=== PATIENT | male | born 1960 | race Caucasian/White ===

== ENCOUNTER 2022-10-29 16:59 | Emergency (ER) | payer MEDICARE, SELFPAY ==
[2022-10-29 17:03] VITALS: BP 165/90; PULSE 88; RESP 18; TEMP 36.6; O2SAT 99
--- NOTE | 2022-10-29 21:44 | PC.NURSE ---
2130 pt called to go back to room no answer 0 pt called 2nd time to go back to room no answer
== END 2022-10-29 21:30 | disposition left against medical advice (07) ==
PROVIDERS: PCP Internal Medicine
DX: G20 Parkinson's disease (principal)
CPT/HCPCS: 99199

== ENCOUNTER 2024-06-26 12:26 | Emergency (ER) | payer MEDICARE, SELFPAY ==
--- NOTE | ~2024-06-26 | XR_ITS ---
HISTORY: fall 2 weeks ago, left groin pain COMPARISON: None TECHNIQUE: 2 views of the left hip along with an AP view of the pelvis FINDINGS: No acute fracture or dislocation is identified. Superior lateral sclerosis of the femoral acetabular joint space is present consistent with osteoarth ritis. Degenerative disease within the visualized portion of the lower lumbar spine. Mineralization is age-appropriate IMPRESSION: Degenerative disease without acute fracture or dislocation Reviewed, dictated and finalized at location A. 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
[2024-06-26 12:27] VITALS: BP 185/106; PULSE 90; RESP 16; TEMP 37; O2SAT 97
--- OUTSIDE RECORDS SUMMARY | 2024-06-26 12:29 | XMS_ITS | Referral Summary ---
Author Organization [facility] Address [address] [place] [address] Care Team Providers Care Medical Insurance Verifier Name Role Phone Unknown, Notinfile Primary Care Provider Unavail able Rose Nuñez MD, Josh P. Unavailable [phone] Allergies No known active allergies Medications cyclobenzaprine (FLEXERIL) 5 mg tablet Take 1 tablet (5 mg total) by mouth 3 (three) times a day as needed for muscle spasms Active rotigotine 8 mg/24 hour [address] 1 patch on the skin daily Active carbidopa-levod opa (SINEMET) 25-250 mg per tablet Take 1.5 tablets by mouth 6 (six) times a day Active aspirin 81 mg enteric coated tabletIndicatio ns:cardiovascul ar disease Take 1 tablet (81 mg total) by mouth daily 30 tablet 12/23/2022 Active metoprolol XL (TOPROL-XL) 25 mg extended release tabletIndicatio ns:cardiovascul ar disease Take 1 tablet (25 mg total) by mouth daily 30 tablet 12/23/2022 Active ticagrelor (BRILINTA) 90 mg tabletIndicatio ns:cardiovascul ar disease Take 1 tablet (90 mg total) by mouth 2 (two) times a day 60 tablet 12/22/2022 Active Active Problems Problem Noted Date Diagnosed Date CAD (coronary artery disease) 12/21/2022 Social History Tobacco Use Types Packs/Day Years Used Date Smoking Tobacco: Never Tobacco Cessation:Counseling Given: Not Answered Alcohol Use Standard Drinks/Week Comments Not Currently 0 (1 standard drink = 0.6 oz pur e alcohol) Personal Safety Answer Date Recorded Getting School Help Needed Not on file 01/11 Sex and Gender Information Value Date Recorded Sex Assigned at Not on file 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 Gender Identity Not on file Sexual Orientation Not on file Last Filed Vital Signs Vital Sign Reading Time Taken Comments Blood Pressure 134/79 08/28/2023 10:21 AM CDT Pulse 81 08/28/2023 10:21 AM CDT Temperature 36.6 C (97.9 F) 12/22/2022 11:39 AM CDT Respiratory Rate 18 12/22/2022 11:39 AM CDT Oxygen Saturation 95% 12/22/2022 11:39 AM CDT Inhaled Oxygen Concentration - - Weight 83.6 kg (184 lb 3.2 oz) 08/28/2023 10:21 AM CDT Height 170.2 cm (5' 7 ) 08/28/2023 10:21 AM CDT Body Mass Index 28.85 08/28/2023 10:21 AM CDT Plan of Treatment Not on file Medical Devices Implanted Type Area Inspector Heating And Refrigeration Device Identifier Shelf Expiration Date Model / Serial / Lot TerChina Everbright International Leydi Angio-Seal Vip 6fr Closere Device [id number] - [id number] Implanted:Qty : 1 on 12/21/2022 by Claude Mccracken MD at [facility] Collagen Right: Common Femoral Artery Terumo Medical Leydi 06/12/2023 [id number] / / [id number] Medtronic Card Vasc Surgery 3.0 X 12mm Pabilto [place] Rx Coronary Stent [id number] - [id number] Implanted:Qty : 1 on 12/21/2022 by Claude Mccracken MD at [facility] Stent Left: Circumflex Coronary Artery Medtronic Card Vasc Surgery 08/31/2025 [id number] / / [id number] [facility] MEDICARE SOLUTIONS Advance Directives For more information, please contact: [phone] * Full Code (Latest Code Status on File) Date Activated Date Inactivated Comments 12/21/2022 3:44 PM 12/22/2022 6:01 PM * Full Code Date Activated Date Inactivated Comments 12/21/2022 2:12 PM 12/21/2022 3:44 PM Care Teams Medical Insurance Verifier Relationship Specialty Start Date End Date Unknown, Notinfile PCP - General 10/17/22 Josh Rose Jr., MD [address] [place] [address] Consulting Physician Cardiovascular Disease 12/22/22
--- OUTSIDE RECORDS SUMMARY | 2024-06-26 12:30 | XMS_ITS | Continuity of Care Document ---
Author Organization [facility] Address [address] [place] [address] [address] [place] [address] Phone Care Team Providers Care Delivery Person Name Role Phone Peng OD, Jaden Unavailable Unavailable Procedures Procedure Date Eye Exam Established Pt Advance Directives Directive Yes / No Effective Date File Name No Information Encounters Encounter Description Practice Location Reason(s) For Visit Diagnoses Date Provider Providers Copied on Encounter [facility], [address] [place] [address] [address], [place], [place], [id number], [place] tel:[phone] [facility] [place] No Information 6-200 8 Peng OD Jaden. [address] [facility] , [address], [place], [address], [place]. tel:[phone] Referring Provider: Asad Tinajero MD, [address] [place], [place], [facility]. tel:[phone] Family History Family Member Type Diagnosis Age At Onset No Information Payers Payer name Insurance type Covered libertarian ID Authoriza tion(s) No Information Social History Type Description Quantity Date Captured Comments Sex Male Smoking Status No Information Chief Complaint And Reason For Visit No Information Reason For Referral Reason For Referral No Information History Of Present Illness Encounter Date Complaint History Of Prese nt Illness No Information Functional Status Date Functional Assessmen t No Information Instructions Date Instruction Additional Infor mation No Information Assessments Type Assessment Date No Information Patient Care Teams Name Effective Dates (start - stop) Status Members No Information
--- OUTSIDE RECORDS SUMMARY | 2024-06-26 12:30 | XMS_ITS | Clinical Summary ---
Author Organization [facility] Address [address] [place] [address] Care Team Providers Care Hand Stone Polisher Name Role Phone Unknown, Notinfile Primary Care Provider Unavail able Rose Nuñez MD, Josh P. 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 Gender Identity Not on file Sexual Orientation Not on file Obstetrics History Last Filed Vital Signs Vital Sign Reading [...] 08/28/2023 10:21 AM CDT Plan of Treatment Health Maintenance Due Date Last Done Comments Colon Cancer Screening-Colonoscopy 1958 Depression Screening 1958 Fall Risk Assessment 1958 Hepatitis C Screening 1958 Prostate Cancer Screening-PSA 1958 DTaP/Tdap/Td Vaccine (1 - Tdap) 1969 Hepatitis B Screening 1976 Zoster Vaccine (1 of 2) 2008 Pneumococcal vaccine 65+ (1 of 1 - PCV) 10/18/2023 Well Visit 65+ 10/18/2023 Influenza Vaccine (#1) 2024 Medical Devices Implanted Type Area Tube Balancer Device Identifier Shelf Expiration Date Model / Serial / Lot TerNovaled Leydi Angio-Seal Vip 6fr Closere Device [id number] - [id number] Implanted:Qty : 1 on 12/21/2022 by Claude Mccracken MD at [facility] Collagen Right: Common Femoral Artery Terumo Medical Leydi 06/12/2023 [id number] / / [id number] Medtronic Card Vasc Surgery 3.0 X 12mm Pablito [place] Rx Coronary Stent [id number] - [id number] Implanted:Qty : 1 on 12/21/2022 by Claude Mccracken MD at [facility] Stent Left: Circumflex Coronary Artery Medtronic Card Vasc Surgery 08/31/2025 [id number] / / [id number] Insurance [facility] [address] [facility] MEDIC[facility] Address: [address] [place] [address] MEDICARE SOLUTIONS Advance Directives For more information, please contact: [phone] * Full Code (Latest Code Status on File) Date Activated Date Inactivated Comments 12/21/2022 3:44 PM 12/22/2022 6:01 PM * Full Code Date Activated Date Inactivated Comments 12/21/2022 2:12 PM 12/21/2022 3:44 PM Care Teams Hand Stone Polisher Relationship Specialty Start Date End Date Unknown, Notinfile PCP - General 10/17/22 Josh Rose Jr., MD [address] [place] [address] Consulting Physician Cardiovascular Disease 12/22/22
--- NOTE | 2024-06-26 14:23 | ED.RECABL ---
HPI - Recheck/Abnormal Lab/Rx General Chief Complaint: Recheck/Abnormal Lab/Rx <Donna Alanis PA-C - Last Filed: 06/26/24 14:28> Stated Complaint: parkinson's issues <Donna Alanis PA-C - Last Filed: 06/26/24 14:28> Time Seen by Provider: 06/26/24 15:12 <Donna Alanis PA-C - Last Filed: 06/26/24 14:28> Focused HPI: 63-year-old male with history of Parkinson's disease presents to the emergency department with friend at bedside for home health. Patient states today he was having difficulty caring for himself, going to the bathroom, going from sitting to standing position. States he cannot care for himself and lives by himself. He was a part of the [email or web address] program and had a home health nurse, however she got a month and half ago and he has not had any help since. His only complaint is left hip pain from a fall that occurred 3 weeks ago from slipping on ice. He states he did not hit his head lose consciousness. He has not had any imaging of his head performed. No other complaints. His neurologist is Dr. Shahid. GENERAL: Well-appearing, well-nourished, and in no acute distress. HEAD: Normocephalic, atraumatic. CHEST: Clear to auscultation. ?No respiratory distress. HEART: Regular rate and rhythm.? NEURO: ?Alert and oriented x3. Patient screened in triage and initial orders placed.? ?Additional care and disposition to be based upon?diagnostic testing and treatment. <Donna Alanis PA-C - Last Filed: 06/26/24 14:28> Source: patient and family <Carlos Humphreys MD - Last Filed: 06/26/24 16:23> Mode of arrival: ambulatory <Carlos Humphreys MD - Last Filed: 06/26/24 16:23> Limitations: no limitations <Carlos Humphreys MD - Last Filed: 06/26/24 16:23> History of Present Illness HPI narrative: 63-year-old with a history of Parkinson's here with the complaints of having confusion, having difficulty in walking since this morning. According to the friend who is at bedside states that she has been quite confused earlier this morning he was unable to stand or walk with a walker however by the time he got to the ER he seems to be more coherent. Patient denies any headache or chest pain. He states that he has been dealing with this Parkinson's disease for last 20 years has been to be [facility] several years ago , was advised to get a deep brain stimulator , which he refused to get it , has been seeing Dr. Shahid here at this facility . <Carlos Humphreys MD - Last Filed: 06/26/24 16:23> Symptoms since prior visit: no new symptoms <Carlos Humphreys MD - Last Filed: 06/26/24 16:23> Associated symptoms: none <Carlos Humphreys MD - Last Filed: 06/26/24 16:23> Related Data Allergies/Adverse Reactions: Allergies Allergy/AdvReac Type Severity Reaction Status Date / Time No Known Allergies Allergy Verified 02/24/24 14:58 <Donna Alanis PA-C - Last Filed: 06/26/24 14:28> Review of Systems Review of Systems: All systems reviewed & are unremarkable except as noted in HPI and below <Carlos Humphreys MD - Last Filed: 06/26/24 16:23> Constitutional: Constitutional: Reports no additional constitutional complaints <Carlos Humphreys MD - Last Filed: 06/26/24 16:23> Eyes: Eyes: Reports no additional eye complaints <Carlos Humphreys MD - Last Filed: 06/26/24 16:23> ENT: Reports system reviewed and no additional complaints, except as documented <Carlos Humphreys MD - Last Filed: 06/26/24 16:23> Cardiovascular: Cardiovascular: Reports no additional cardiovascular complaints <Carlos Humphreys MD - Last Filed: 06/26/24 16:23> Respiratory: Respiratory: Reports no additional respiratory complaints <Carlos Humhpreys MD - Last Filed: 06/26/24 16:23> Gastrointestinal: Gastrointestinal: Reports no additional gastrointestinal complaints <Carlos Humphreys MD - Last Filed: 06/26/24 16:23> Musculoskeletal: Musculoskeletal: Reports no additional musculoskeletal complaints <Carlos Humphreys MD - Last Filed: 06/26/24 16:23> Neurologic: Reports system reviewed and no additional complaints, except as documented <Carlos Humphreys MD - Last Filed: 06/26/24 16:23> PMFSH Past Medical History Medical History: Medical History REM behavioral disorder <Donna Alanis PA-C - Last Filed: 06/26/24 14:28> Social History Social History: Social History Social History: never smoker Smoking packs per day: 0 Smoking cigarettes per day: 0.0 Years smoked: 0 Smoking pack-years: 0.00 Smoking status: Never smoker Second hand tobacco smoke exposure: No Alcohol intake: never Substance use: current Substance use type: marijuana Do You Feel Safe in your Home?: Yes Lack of Transportation: YES Lack of Food: Sometimes True Current Housing: I Have Housing Concerned About Future Housing: No Difficulty Paying Gas/Electric Bills: No Difficulty Paying for Meds: No Currently Unemployed: No Education: Trade/Vocational Certificate Difficulty w/ Childcare or Family Care: No <Donna Alanis PA-C - Last Filed: 06/26/24 14:28> Exam Narrative: GENERAL: Well-appearing, well-nourished, and in no acute distress. HEAD: Normocephalic, atraumatic. EYES: PERRLA and EOMI. NECK: Supple. CHEST: Clear to auscultation. No respiratory distress. HEART: Regular rate and rhythm. No murmur heard. Normal peripheral pulses. ABDOMEN: Soft, nontender, nondistended, normal active bowel sounds. EXTREMITIES: Normal range of motion. No edema. SKIN: Warm, dry, no rash. NEURO: No focal deficits. Alert and oriented x3. Has Parkinson Tremor PSYCH: Normal mood and affect. <Carlos Humphreys MD - Last Filed: 06/26/24 16:23> Course Course Emergency Course: Informed patient and stranding about the lab work and x-ray findings. Advised him to continue his home medicine, contact the social service for increasing in visiting nurse hours. Also advised him to follow with movement Disorder Clinic at [facility] <Carlos Humphreys MD - Last Filed: 06/26/24 16:23> Vital Signs Vital signs: Vital Signs Temperature 37.0 C 06/26/24 12:27 Pulse Rate 90 06/26/24 12:27 Respiratory Rate 16 06/26/24 12:27 Blood Pressure 185/106 H 06/26/24 12:27 Pulse Oximetry 97 06/26/24 12:27 Temperature 37.0 C 06/26/24 12:27 Pulse Rate 90 06/26/24 12:27 Respiratory Rate 16 06/26/24 12:27 Blood Pressure 185/106 H 06/26/24 12:27 Pulse Oximetry 97 06/26/24 12:27 <Donna Alanis PA-C - Last Filed: 06/26/24 14:28> Vital Signs Temperature 37.0 C 06/26/24 12:27 Pulse Rate 90 06/26/24 12:27 Respiratory Rate 16 06/26/24 12:27 Blood Pressure 185/106 H 06/26/24 12:27 Pulse Oximetry 97 06/26/24 12:27 Temperature 37.0 C 06/26/24 12:27 Pulse Rate 90 06/26/24 12:27 Respiratory Rate 16 06/26/24 12:27 Blood Pressure 185/106 H 06/26/24 12:27 Pulse Oximetry 97 06/26/24 12:27 <Carlos Humphreys MD - Last Filed: 06/26/24 16:23> MDM - Recheck/Abnormal Lab/Rx Lab Data Attestation: I reviewed the patient's lab results. <Carlos Humphreys MD - Last Filed: 06/26/24 16:23> Result diagrams: 06/26/24 15:02 06/26/24 15:02 <Donna Alanis PA-C - Last Filed: 06/26/24 14:28> Labs: Lab Results 06/26/24 Range/Units 15:02 WBC 9.6 (4.5-10.0) K/mm3 RBC 4.83 (4.6-6.20) M/mm3 Hgb 14.9 (14.0-18.0) g/dL Hct 45.1 (42.0-52.0) % MCV 93.4 (80-100) fl MCH 30.8 (26-34) pg MCHC 33.0 (32-36) g/dl RDW 13.2 (11.5-14.5) % Plt Count 228 (150-375) k/mm3 MPV 11.3 H (7.4-10.4) fl Immature Gran % (Auto) 0.6 H (0-0.5) % Neut % (Auto) 78.5 H (45.5-73.1) % Lymph % (Auto) 14.3 L (18.3-44.2) % [place] % (Auto) 5.3 (2.6-8.5) % Eos % (Auto) 0.8 (0-4.4) % Baso % (Auto) 0.5 (0.2-1.2) % Lymph # (Auto) 1.38 (0.9-3.2) K/mm3 [place] # (Auto) 0.5 (0.1-0.6) K/mm3 Eos # (Auto) 0.1 (0-0.3) K/mm3 Baso # (Auto) 0.1 (0.0-0.1) K/mm3 Abs Immat Gran (auto) 0.06 H (0.00-0.031) K/mm3 Absolute Neuts (auto) 7.6 H (1.3-6.7) K/mm3 Absolute Nucleated RBC 0.000 (0.0-0.012) K/mm3 Nucleated RBC % 0.0 (0.0-0.2) % Sodium 139 (137-145) mmol/L Potassium 4.3 (3.4-5.0) mmol/L Chloride 102 (98-107) mmol/L Carbon Dioxide 21 L (22-30) mmol/L Anion Gap 16 H (4-12) mmol/L BUN 21 H (9-20) mg/dL Creatinine 0.71 (0.7-1.3) mg/dL Estim Creat Clear Calc 93 ml/min Estimated GFR > 60 (59 - ) Glucose 104 (65-110) mg/dL Calcium 9.4 (8.4-10.2) mg/dL Total Bilirubin 0.7 (0.2-1.3) mg/dL AST 29 (17-59) U/L ALT 12 (6-50) U/L Alkaline Phosphatase 77 (38-126) U/L Total Protein 8.0 (6.3-8.2) g/dL Albumin 4.6 (3.5-5.1) g/dL Urine Color Yellow (Yellow) Urine Appearance Clear (Clear) Urine pH 5.0 (5.0-9.0) Ur Specific [place] 1.017 (1.001-1.035) Urine Protein Negative (Negative) mg/dL Urine Glucose (UA) Negative (Negative) mg/dL Urine Ketones Negative (Negative) mg/dL Ur Blood (Man) Negative (Negative) Urine Nitrate Negative (Negative) Urine Bilirubin Negative (Negative) Urine Urobilinogen 0.2 (<2.0) mg/dL Leukocyte Esterase Rfl Negative (Negative) IVANIA/UL <Donna Alanis PA-C - Last Filed: 06/26/24 14:28> Lab Results 06/26/24 Range/Units 15:02 WBC 9.6 (4.5-10.0) K/mm3 RBC 4.83 (4.6-6.20) M/mm3 Hgb 14.9 (14.0-18.0) g/dL Hct 45.1 (42.0-52.0) % MCV 93.4 (80-100) fl MCH 30.8 (26-34) pg MCHC 33.0 (32-36) g/dl RDW 13.2 (11.5-14.5) % Plt Count 228 (150-375) k/mm3 MPV 11.3 H (7.4-10.4) fl Immature Gran % (Auto) 0.6 H (0-0.5) % Neut % (Auto) 78.5 H (45.5-73.1) % Lymph % (Auto) 14.3 L (18.3-44.2) % [place] % (Auto) 5.3 (2.6-8.5) % Eos % (Auto) 0.8 (0-4.4) % Baso % (Auto) 0.5 (0.2-1.2) % Lymph # (Auto) 1.38 (0.9-3.2) K/mm3 [place] # (Auto) 0.5 (0.1-0.6) K/mm3 Eos # (Auto) 0.1 (0-0.3) K/mm3 Baso # (Auto) 0.1 (0.0-0.1) K/mm3 Abs Immat Gran (auto) 0.06 H (0.00-0.031) K/mm3 Absolute Neuts (auto) 7.6 H (1.3-6.7) K/mm3 Absolute Nucleated RBC 0.000 (0.0-0.012) K/mm3 Nucleated RBC % 0.0 (0.0-0.2) % Sodium 139 (137-145) mmol/L Potassium 4.3 (3.4-5.0) mmol/L Chloride 102 (98-107) mmol/L Carbon Dioxide 21 L (22-30) mmol/L Anion Gap 16 H (4-12) mmol/L BUN 21 H (9-20) mg/dL Creatinine 0.71 (0.7-1.3) mg/dL Estim Creat Clear Calc 93 ml/min Estimated GFR > 60 (59 - ) Glucose 104 (65-110) mg/dL Calcium 9.4 (8.4-10.2) mg/dL Total Bilirubin 0.7 (0.2-1.3) mg/dL AST 29 (17-59) U/L ALT 12 (6-50) U/L Alkaline Phosphatase 77 (38-126) U/L Total Protein 8.0 (6.3-8.2) g/dL Albumin 4.6 (3.5-5.1) g/dL Urine Color Yellow (Yellow) Urine Appearance Clear (Clear) Urine pH 5.0 (5.0-9.0) Ur Specific [place] 1.017 (1.001-1.035) Urine Protein Negative (Negative) mg/dL Urine Glucose (UA) Negative (Negative) mg/dL Urine Ketones Negative (Negative) mg/dL Ur Blood (Man) Negative (Negative) Urine Nitrate Negative (Negative) Urine Bilirubin Negative (Negative) Urine Urobilinogen 0.2 (<2.0) mg/dL Leukocyte Esterase Rfl Negative (Negative) IVANIA/UL <Carlos Humphreys MD - Last Filed: 06/26/24 16:23> Imaging Data Radiologist's impression: ITS Impressions Hip/Pelvis X-Ray 06/26/24 15:20 IMPRESSION: Degenerative disease without acute fracture or dislocation <Carlos Humphreys MD - Last Filed: 06/26/24 16:23> Discharge Plan Discharge Clinical Impression: Parkinson's Disease <Donna Alanis PA-C - Last Filed: 06/26/24 14:28> Patient Disposition: Home, Self-Care <Donna Alanis PA-C - Last Filed: 06/26/24 14:28> Condition: Stable <Donna Alanis PA-C - Last Filed: 06/26/24 14:28> Instructions: Antibiotic Form <Donna Alanis PA-C - Last Filed: 06/26/24 14:28> Additional Instructions: continue home medication . Can call Dr Federica Preston at [facility] for an appointment [phone] <Donna Alanis PA-C - Last Filed: 06/26/24 14:28> Patient Language: Luxembourger <Donna Alanis PA-C - Last Filed: 06/26/24 14:28> Prescriptions: No Action bnwdoygqx-uqghrzyw-snldlaavoo 50-200-200 mg tablet 1 tablet PO QID Qty: 240 6RF carbidopa-levodopa 25-250 mg tablet See Rx Instructions .ROUTE .COMPLEX Qty: 675 1RF Dose Instruction: TAKE 1 AND 1/2 TABLETS BY MOUTH 5 TIMES DAILY Rx Instructions: TAKE 1 AND 1/2 TABLETS BY MOUTH 5 TIMES DAILY amantadine HCl 50 mg/5 mL solution See Rx Instructions .ROUTE .COMPLEX Qty: 1800 2RF Dose Instruction: TAKE 10ML BY MOUTH ONCE EVERY 12 HOURS. NEED APPOINTMENT TO HAVE A REFILL Rx Instructions: TAKE 10ML BY MOUTH ONCE EVERY 12 HOURS rotigotine 8 mg/24 hour patch 24 hour 8 mg transdermal DAILY Qty: 30 5RF <Donna Alanis PA-C - Last Filed: 06/26/24 14:28> Follow-up/Referrals: Billy,Kody Sterling MD [Primary Care Provider] - <Donna Alanis PA-C - Last Filed: 06/26/24 14:28> Time of Disposition: 16:23 <Donna Alanis PA-C - Last Filed: 06/26/24 14:28> 16:23 <Carlos Humphreys MD - Last Filed: 06/26/24 16:23>
--- NOTE | 2024-06-26 14:52 | PCCCNOTE ---
Called [place] [facility] to try to assist the pt to find the name of the company who comes to his home to assist with [employer] needs. Stated the pt has to call himself to receive that information. Will share the number of [phone] for him to call.--rajesh.
[2024-06-26 15:16] LABS: Add Urine Microscopic? NO; Appearance Urine Clear (Clear); Bilirubin Urine Negative (Negative); Blood Urine Negative (Negative); Color Urine Yellow (Yellow); Glucose Urine UA Negative (Negative); Ketones Urine Negative (Negative); Leukocyte Esterase Ur Negative LEU/UL (Negative); Nitrate Urine Negative (Negative); Protein Urine Negative (Negative); Specific Grav Ur 1.017 (1.001-1.035); Urobilinogen Urine 0.2 mg/dL (<2.0)
[2024-06-26 15:33] LABS: Alanine Aminotransferase 12 U/L (6-50); Albumin Level 4.6 g/dL (3.5-5.1); Alkaline Phosphatase 77 U/L (38-126); Anion Gap 16 mmol/L (4-12); Aspartate Amino Transferase 29 U/L (17-59); Bilirubin,Total 0.7 mg/dL (0.2-1.3); Blood Urea Nitrogen 21 mg/dL (9-20); Calcium 9.4 mg/dL (8.4-10.2); Carbon Dioxide 21 mmol/L (22-30); Chloride 102 mmol/L (98-107); Estimated CRCL calculation 93 ml/min; Estimated Glomerular Filt Rate > 60; Glucose 104 mg/dL (65-110); Potassium 4.3 mmol/L (3.4-5.0); Sodium 139 mmol/L (137-145)
--- OUTSIDE RECORDS SUMMARY | 2024-06-26 15:33 | XMS_ITS | Continuity of Care Document ---
Author Organization [facility] Address [address] [place] [address] [address] [place] [address] Phone Care Team Providers Care Sales Recruiter Name Role Phone Peng OD, Jaden Unavailable Unavailable Procedures Procedure Date Eye Exam Established Pt Advance Directives Directive Yes / No Effective Date File Name No Information Encounters Encounter Description Practice Location Reason(s) For Visit Diagnoses Date Provider Providers Copied on Encounter [facility], [address] [place] [address] [address], [place], [place], [id number], [place] tel:[phone] [facility] [place] No Information 6-200 8 Peng OD Jaden. [address] [facility] , [address], [place], [address], [place]. tel:[phone] Referring Provider: Asad Tinajero MD, [address] [place], [place], [facility]. tel:[phone] Family History Family Member Type Diagnosis Age At Onset No Information Payers Payer name Insurance type Covered alliance party ID Authoriza tion(s) No Information Social History [...]
--- OUTSIDE RECORDS SUMMARY | 2024-06-26 15:33 | XMS_ITS | Referral Summary ---
Author Organization [facility] Address [address] [place] [address] Care Team Providers Care Count Team Member Name Role Phone Unknown, Notinfile Primary Care Provider Unavail able Rose Nuñez MD, Josh P. 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 Gender Identity Not on file Sexual Orientation [...] on file Medical Devices Implanted Type Area Doll Surgeon Device Identifier Shelf Expiration Date Model / Serial / Lot [employer] Leydi Angio-Seal Vip 6fr Closere Device [id number] - [id number] Implanted:Qty : 1 on 12/21/2022 by Claude Mccracken MD at [facility] Collagen Right: Common Femoral Artery [employer] Leydi 06/12/2023 [id number] / / [id number] Medtronic Card Vasc Surgery 3.0 X 12mm Pablito [place] Rx Coronary Stent [id number] - [id number] Implanted:Qty : 1 on 12/21/2022 by Claude Mccracken MD at [facility] Stent Left: Circumflex Coronary Artery Medtronic Card Vasc Surgery 08/31/2025 [id number] / / [id number] [facility] Advance Directives For more information, please contact: [phone] * Full Code (Latest Code Status on File) Date Activated Date Inactivated Comments 12/21/2022 3:44 PM 12/22/2022 6:01 PM * Full Code Date Activated Date Inactivated Comments 12/21/2022 2:12 PM 12/21/2022 3:44 PM Care Teams Count Team Member Relationship Specialty Start Date End Date Unknown, Notinfile PCP - General 10/17/22 Josh Rose Jr., MD [address] [place] [address] Consulting Physician Cardiovascular Disease 12/22/22
--- OUTSIDE RECORDS SUMMARY | 2024-06-26 15:33 | XMS_ITS | Clinical Summary ---
Author Organization [facility] Address [address] [place] [id number] Care Team Providers Care Veneer Department Manager Name Role Phone Unknown, Notinfile Primary Care Provider Unavail able Rose Nuñez MD, Josh P. 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 Gender Identity Not on file Sexual Orientation [...] (#1) 2024 Medical Devices Implanted Type Area Lip Cutter And Scorer Device Identifier Shelf Expiration Date Model / Serial / Lot TerSDI-Solution Leydi Angio-Seal Vip 6fr Closere Device [id number] - [id number] Implanted:Qty : 1 on 12/21/2022 by Claude Mccracken MD at [facility] Collagen Right: Common Femoral Artery [employer] Leydi 06/12/2023 [id number] / / [id number] Medtronic Card Vasc Surgery 3.0 X 12mm [place] Rx Coronary Stent [id number] - [id number] Implanted:Qty : 1 on 12/21/2022 by Claude Mccracken MD at [facility] Stent Left: Circumflex Coronary Artery Medtronic Card Vasc Surgery 08/31/2025 [id number] / / [id number] [facility] [facility] Address: [address] [place] [address] MEDICARE SOLUTIONS [facility] MEDIC[facility] Address: [address] [address] [place] [address] Advance Directives For more information, please contact: [phone] * Full Code (Latest Code Status on File) Date Activated Date Inactivated Comments 12/21/2022 3:44 PM 12/22/2022 6:01 PM * Full Code Date Activated Date Inactivated Comments 12/21/2022 2:12 PM 12/21/2022 3:44 PM Care Teams Veneer Department Manager Relationship Specialty Start Date End Date Unknown, Notinfile PCP - General 10/17/22 Josh Rose Jr., MD [id number] [place] [address] Consulting Physician Cardiovascular Disease 12/22/22
[2024-06-26 15:35] LABS: Basophils Absolute Auto 0.1 K/mm3 (0.0-0.1); Basophils Percent Auto 0.5 % (0.2-1.2); Eosinophils Absolute Auto 0.1 K/mm3 (0-0.3); Eosinophils Percent Auto 0.8 % (0-4.4); Hematocrit 45.1 % (42.0-52.0); Hemoglobin 14.9 g/dL (14.0-18.0); Immature Granulocyte Absolute 0.06 K/mm3 (0.00-0.031); Immature Granulocyte Percent A 0.6 % (0-0.5); Lymphocytes Absolute Auto 1.38 K/mm3 (0.9-3.2); Lymphocytes Percent Auto 14.3 % (18.3-44.2); Mean Corpuscular Hemoglobin 30.8 pg (26-34); Mean Corpuscular Volume 93.4 fl (80-100); Mean Platelet Volume 11.3 fl (7.4-10.4); Monocytes Absolute Auto 0.5 K/mm3 (0.1-0.6); Monocytes Percent Auto 5.3 % (2.6-8.5); Neutrophils Absolute Auto 7.6 K/mm3 (1.3-6.7); Neutrophils Percent Auto 78.5 % (45.5-73.1); Platelet Count Result 228 k/mm3 (150-375); Red Blood Count 4.83 M/mm3 (4.6-6.20); Red Cell Distribution Width 13.2 % (11.5-14.5); White Blood Count 9.6 K/mm3 (4.5-10.0)
[2024-06-26 16:25] VITALS: BP 159/96; PULSE 83; RESP 19; O2SAT 98
== END 2024-06-26 16:39 | disposition home or self-care (01) ==
PROVIDERS: Physician Assistant; Emergency Provider Family Medicine; PCP Internal Medicine
DX: G20.A1 Parkinson's disease without dyskinesia, without mention of fluctuations (principal); S79.912A Unspecified injury of left hip, initial encounter; G47.52 REM sleep behavior disorder; W00.0XXA Fall on same level due to ice and snow, initial encounter
CPT/HCPCS: 36415; 73502; 80053; 81003; 85025; 99283